=== PATIENT | female | born 1970 | race Caucasian/White ===

== ENCOUNTER → 2021-12-23 | Outpatient (REF) | payer OTHER | LOC: M LAB REF 18:45 | PROVIDERS: ATTEND Nurse Practitioner Family | DX: Z12.4 Encounter for screening for malignant neoplasm of cervix (principal); N76.0 Acute vaginitis ==

== ENCOUNTER → 2021-12-31 | Outpatient (CLI) | payer MEDICAID, OTHER | LOC: M RAD 11:20 | PROVIDERS: ATTEND Nurse Practitioner Family | DX: M54.50 Low back pain, unspecified (principal); M47.816 Spondylosis without myelopathy or radiculopathy, lumbar region; M47.814 Spondylosis without myelopathy or radiculopathy, thoracic region ==

== ENCOUNTER 2022-02-28 11:59 | Emergency (ER) | payer MEDICAID, OTHER ==
[~2022-02-28] VITALS: Ht 170.2 cm; Wt 88.6 kg
[2022-02-28] MEDS ORDERED: PREG75CA2 (12:21)
[2022-02-28] MEDS ORDERED: ROPI0.5T3 (12:21)
[2022-02-28] MEDS ORDERED: OMEP-173 (12:21)
[2022-02-28 13:52] LABS: BASO # 0.1 10^3/uL (0.0-0.2); BASO % 0.4 % (0.0-1.0); EOS # 0.1 10^3/uL (0.0-0.5); EOS % 0.6 % (0.0-3.0); HEMATOCRIT 44.4 % (36.0-47.0); LYMPH # 1.1 10^3/uL (1.5-5.0); LYMPH % 7.6 % (24.0-44.0); MEAN CORPUSCULAR HEMOGLOBIN 30.1 pg (27.0-33.0); MEAN CORPUSCULAR HGB CONC 33.8 g/dl (32.0-36.5); MONO # 1.2 10^3/uL (0.0-0.8); MONO % 7.7 % (2.0-8.0); NEUTROPHILS # 12.6 10^3/uL (1.5-8.5); NEUTROPHILS % 83.3 % (36.0-66.0); PLATELET COUNT, AUTOMATED 314 10^3/uL (150-450); RED BLOOD COUNT 4.99 10^6/uL (4.00-5.40); WHITE BLOOD COUNT 15.1 10^3/uL (4.0-10.0)
[2022-02-28 14:34] LABS: ALBUMIN 3.9 GM/DL (3.2-5.2); ALT/SGPT 26 U/L (12-78); BILIRUBIN,DIRECT < 0.1 MG/DL (0.0-0.2); BILIRUBIN,TOTAL 0.3 MG/DL (0.2-1.0); BLOOD UREA NITROGEN 13 MG/DL (7-18); CALCIUM LEVEL 9.5 MG/DL (8.5-10.1); CARBON DIOXIDE LEVEL 31 MEQ/L (21-32); CHLORIDE LEVEL 106 MEQ/L (98-107); CREATININE FOR GFR 0.84 MG/DL (0.55-1.30); GLOMERULAR FILTRATION RATE > 60.0 (>51); GLUCOSE, FASTING 108 MG/DL (70-100); LIPASE 108 U/L (73-393); POTASSIUM SERUM 4.8 MEQ/L (3.5-5.1); SODIUM LEVEL 140 MEQ/L (136-145); TOTAL PROTEIN 8.1 GM/DL (6.4-8.2)
[2022-02-28] MEDS ORDERED: ISOVUE-370 76% 100ML VIAL As Ordered ONE (16:00)
[2022-02-28] MEDS ORDERED: PANTOPRAZOLE 40MG TAB (PROTONIX) PO ONE (17:25)
[2022-02-28] MEDS ORDERED: OMEP-173 PO (17:49)
[2022-02-28 17:58] VITALS: BP 131/66
== END 2022-02-28 17:59 | disposition home or self-care (01) ==
LOC: M ED 11:59
DX: R10.9 Unspecified abdominal pain (principal); Z11.52 Encounter for screening for COVID-19; R11.2 Nausea with vomiting, unspecified; K44.9 Diaphragmatic hernia without obstruction or gangrene; K57.30 Diverticulosis of large intestine without perforation or abscess without bleeding; K21.9 Gastro-esophageal reflux disease without esophagitis; G25.81 Restless legs syndrome; M54.9 Dorsalgia, unspecified; F17.200 Nicotine dependence, unspecified, uncomplicated; Z91.030 Bee allergy status
CPT/HCPCS: 74177; 80048; 80076; 83690; 85025; 87426; 93005; 99284; Q9967

== ENCOUNTER → 2022-03-09 | Outpatient (CLI) | payer MEDICAID, OTHER ==
[~2022-03-09] MED LIST: OMEP-173; OMEP-173 PO; PREG75CA2; ROPI0.5T3
== END ==
LOC: M WHC 10:41
PROVIDERS: ATTEND Nurse Practitioner Family
DX: R92.2 Inconclusive mammogram (principal); N63.10 Unspecified lump in the right breast, unspecified quadrant

== ENCOUNTER → 2022-05-20 | Outpatient (CLI) | payer OTHER ==
[~2022-05-20] MED LIST changes: -PREG75CA2; +PREG75CA2 PO; -ROPI0.5T3; +ROPI0.5T3 PO
== END ==
LOC: M PLAIMG 11:56
PROVIDERS: ATTEND Orthopaedic Surgery
DX: M51.16 Intervertebral disc disorders with radiculopathy, lumbar region (principal)

== ENCOUNTER → 2022-05-31 | Outpatient (CLI) | payer OTHER | LOC: M LABSMTC 10:18 | PROVIDERS: ATTEND Anesthesiology | DX: Z01.818 Encounter for other preprocedural examination (principal) ==

== ENCOUNTER 2022-06-03 07:56 | Day surgery (SDC) | payer MEDICAID, OTHER ==
[~2022-06-03] VITALS: Ht 170.2 cm; Wt 84.4 kg
[~2022-06-03 07:56] MED LIST changes: +NS 1,000 ML IV ONE; +propofoL 500 MG/50 ML VIAL As Ordered ONE
[2022-06-03] MEDS ORDERED: LIDOCAINE 2% 100MG/5ML SDV (FOR ANES.) As Ordered ONE (08:44)
[2022-06-03] MEDS ORDERED: fentaNYL 100 MCG/2 ML INJECTION As Ordered ONE (09:01)
[2022-06-03 09:37] VITALS: BP 135/92
== END 2022-06-03 09:45 | disposition home or self-care (01) ==
LOC: M OPP 07:56
PROVIDERS: ATTEND Surgery
DX: R19.7 Diarrhea, unspecified (principal); K29.50 Unspecified chronic gastritis without bleeding; K22.70 Barrett's esophagus without dysplasia; K64.0 First degree hemorrhoids; K22.89 Other specified disease of esophagus; K21.9 Gastro-esophageal reflux disease without esophagitis; F32.A Depression, unspecified; G47.00 Insomnia, unspecified; Z91.030 Bee allergy status; Z79.899 Other long term (current) drug therapy

== ENCOUNTER → 2022-06-15 | Outpatient (REF) | payer OTHER ==
[~2022-06-15] MED LIST changes: -NS 1,000 ML IV ONE; -propofoL 500 MG/50 ML VIAL As Ordered ONE
[2022-06-15 17:53] LABS: ALKALINE PHOSPHATASE 101 U/L (46-116); ALT/SGPT 25 U/L (7.0-40); AST/SGOT 22 U/L (<34); BILIRUBIN,TOTAL 0.3 MG/DL (0.3-1.2); BLOOD UREA NITROGEN 13 MG/DL (9-23); CALCIUM LEVEL 9.3 MG/DL (8.5-10.1); CARBON DIOXIDE LEVEL 27 MMOL/L (20-31); CHLORIDE LEVEL 103 MMOL/L (98-107); CHOLESTEROL LEVEL 181 MG/DL (<200); CREATININE FOR GFR 0.67 MG/DL (0.55-1.30); GLOMERULAR FILTRATION RATE > 60.0 (>51); GLUCOSE, FASTING 159 MG/DL (60-100); HDL CHOLESTEROL 37.7 MG/DL (>40); LDL CHOLESTEROL 104.7 MG/DL (<100); NON-HDL-C 143 MG/DL; POTASSIUM SERUM 4.4 MMOL/L (3.5-5.1); SODIUM LEVEL 137 MMOL/L (136-145); TRIGLYCERIDES LEVEL 193 MG/DL (<150)
== END ==
LOC: M LAB REF 16:37
PROVIDERS: ATTEND Nurse Practitioner Family
DX: E78.5 Hyperlipidemia, unspecified (principal)

== ENCOUNTER 2022-07-25 22:18 | Emergency (ER) | payer OTHER ==
[~2022-07-25] VITALS: Ht 170.2 cm; Wt 90.0 kg
[2022-07-25 22:18] VITALS: BP 137/86
[2022-07-25 23:15] LABS: RSV AMPLIFICATION NEGATIVE (NEGATIVE)
== END 2022-07-26 00:06 | disposition left against medical advice (07) ==
LOC: M ED 22:18
DX: Z53.21 Procedure and treatment not carried out due to patient leaving prior to being seen by health care provider (principal)

== ENCOUNTER 2022-08-31 11:07 | Outpatient (RCR) | payer OTHER | END 2022-09-02 | LOC: M PT 11:07 | PROVIDERS: ATTEND Orthopaedic Surgery | DX: M51.16 Intervertebral disc disorders with radiculopathy, lumbar region (principal) ==

== ENCOUNTER 2022-09-28 10:45 | Outpatient (RCR) | payer OTHER | END 2022-10-02 | LOC: M PT 10:45 | PROVIDERS: ATTEND Orthopaedic Surgery | DX: M51.16 Intervertebral disc disorders with radiculopathy, lumbar region (principal) ==

== ENCOUNTER 2023-02-05 09:18 | Emergency (ER) | payer OTHER ==
[~2023-02-05] VITALS: Ht 170.2 cm; Wt 83.8 kg
[~2023-02-05 09:18] MED LIST changes: -PREG75CA2 PO; +PREG75CA3 PO; -ROPI0.5T3 PO; +ROPI0.5T33 PO
[2023-02-05] MEDS ORDERED: FEXO60TA99 (09:27)
[2023-02-05] MEDS ORDERED: NAPR-849 PO (09:27)
[2023-02-05] MEDS ORDERED: KETOROLAC 30 MG/ML 1ML VIAL IM ONE (12:20)
[2023-02-05 13:19] VITALS: BP 136/84; TEMP 98; O2SAT 100
== END 2023-02-05 13:20 | disposition home or self-care (01) ==
LOC: M ED 09:18
DX: M19.011 Primary osteoarthritis, right shoulder (principal); M79.601 Pain in right arm; M25.511 Pain in right shoulder; K21.9 Gastro-esophageal reflux disease without esophagitis; F32.A Depression, unspecified; Z91.030 Bee allergy status; Z79.83 Long term (current) use of bisphosphonates; Z79.899 Other long term (current) drug therapy
CPT/HCPCS: 73030; 73060; 96372; 99284; J1885

== ENCOUNTER → 2023-08-11 | Outpatient (CLI) | payer OTHER ==
[~2023-08-11] MED LIST changes: +FEXO60TA99; +NAPR-849 PO
== END ==
LOC: M SOG 08:01
PROVIDERS: ATTEND Physician Assistant
DX: M19.011 Primary osteoarthritis, right shoulder (principal)

== ENCOUNTER → 2023-08-15 | Outpatient (REF) | payer OTHER ==
[2023-08-15 19:07] LABS: BASO # 0.1 10^3/uL (0.0-0.2); BASO % 0.8 % (0.0-1.0); EOS # 0.3 10^3/uL (0.0-0.5); EOS % 2.7 % (0.0-3.0); HEMOGLOBIN 15.1 g/dl (12.0-15.5); LYMPH # 3.3 10^3/uL (1.5-5.0); LYMPH % 35.8 % (24.0-44.0); MEAN CORPUSCULAR HEMOGLOBIN 29.3 pg (27.0-33.0); MEAN CORPUSCULAR HGB CONC 33.6 g/dl (32.0-36.5); MEAN CORPUSCULAR VOLUME 87.4 fl (80.0-96.0); MONO # 0.8 10^3/uL (0.0-0.8); MONO % 8.2 % (2.0-8.0); NEUTROPHILS # 4.8 10^3/uL (1.5-8.5); NEUTROPHILS % 52.3 % (36.0-66.0); PLATELET COUNT, AUTOMATED 348 10^3/uL (150-450); RED BLOOD COUNT 5.15 10^6/uL (4.00-5.40); WHITE BLOOD COUNT 9.1 10^3/uL (4.0-10.0)
[2023-08-15 19:23] LABS: BLOOD UREA NITROGEN 14 MG/DL (9-23); CALCIUM LEVEL 8.4 MG/DL (8.5-10.1); CARBON DIOXIDE LEVEL 27 MMOL/L (20-31); CHLORIDE LEVEL 109 MMOL/L (98-107); CHOLESTEROL LEVEL 153 MG/DL (<200); CHOLESTEROL RISK RATIO 4.95 (<5); CREATININE FOR GFR 0.69 MG/DL (0.55-1.30); GLOMERULAR FILTRATION RATE > 60.0 (>51); GLUCOSE, FASTING 85 MG/DL (60-100); HDL CHOLESTEROL 30.9 MG/DL (>40); IRON (FE) 66 UG/DL (50-170); LDL CHOLESTEROL 90.5 MG/DL (<100); NON-HDL-C 122.1 MG/DL; PERCENT SATURATION 17.7 % (13.2-45.0); POTASSIUM SERUM 4.1 MMOL/L (3.5-5.1); SODIUM LEVEL 140 MMOL/L (136-145); TOTAL IRON BINDING CAPACITY 373 UG/DL (250-425); TRIGLYCERIDES LEVEL 158 MG/DL (<150)
[2023-08-15 19:25] LABS: THYROID STIMULATING HORMONE 1.604 uIU/ML (0.55-4.78)
[2023-08-15 19:39] LABS: HEMOGLOBIN A1c 6.2 % (4.0-6.0)
== END ==
LOC: M LAB REF 15:32
PROVIDERS: ATTEND Nurse Practitioner Family
DX: G25.81 Restless legs syndrome (principal); E78.5 Hyperlipidemia, unspecified; E66.3 Overweight; E55.9 Vitamin D deficiency, unspecified; R53.83 Other fatigue

== ENCOUNTER → 2023-09-15 | Outpatient (CLI) | payer OTHER | LOC: M RAD 09:03 | PROVIDERS: ATTEND Nurse Practitioner Family | DX: R14.0 Abdominal distension (gaseous) (principal); R93.429 Abnormal radiologic findings on diagnostic imaging of unspecified kidney; K76.0 Fatty (change of) liver, not elsewhere classified ==

== ENCOUNTER → 2024-06-12 | Outpatient (CLI) | payer OTHER | LOC: M RAD 10:16 | PROVIDERS: ATTEND Nurse Practitioner Family | DX: N28.89 Other specified disorders of kidney and ureter (principal) ==

== ENCOUNTER → 2024-07-29 | Outpatient (REF) | payer OTHER ==
[2024-07-29 18:10] LABS: BLOOD UREA NITROGEN 8 MG/DL (9-23); CALCIUM LEVEL 8.4 MG/DL (8.5-10.1); CARBON DIOXIDE LEVEL 28 MMOL/L (20-31); CHLORIDE LEVEL 109 MMOL/L (98-107); CHOLESTEROL LEVEL 167 MG/DL (<200); CHOLESTEROL RISK RATIO 5.12 (<5); CREATININE FOR GFR 0.77 MG/DL (0.55-1.30); GLOMERULAR FILTRATION RATE > 60.0 (>51); GLUCOSE, FASTING 100 MG/DL (60-100); HDL CHOLESTEROL 32.6 MG/DL (>40); LDL CHOLESTEROL 83.8 MG/DL (<100); NON-HDL-C 134.4 MG/DL; POTASSIUM SERUM 4.5 MMOL/L (3.5-5.1); SODIUM LEVEL 144 MMOL/L (136-145); TRIGLYCERIDES LEVEL 253 MG/DL (<150)
[2024-07-29 18:12] LABS: BASO # 0.1 10^3/uL (0.0-0.2); BASO % 0.6 % (0.0-1.0); EOS # 0.3 10^3/uL (0.0-0.5); EOS % 2.9 % (0.0-3.0); HEMATOCRIT 42.1 % (36.0-47.0); HEMOGLOBIN 13.8 g/dl (12.0-15.5); LYMPH # 3.1 10^3/uL (1.5-5.0); LYMPH % 36.2 % (24.0-44.0); MEAN CORPUSCULAR HEMOGLOBIN 29.5 pg (27.0-33.0); MEAN CORPUSCULAR HGB CONC 32.8 g/dl (32.0-36.5); MONO # 0.5 10^3/uL (0.0-0.8); MONO % 5.8 % (2.0-8.0); NEUTROPHILS # 4.7 10^3/uL (1.5-8.5); NEUTROPHILS % 54.3 % (36.0-66.0); PLATELET COUNT, AUTOMATED 318 10^3/uL (150-450); RED BLOOD COUNT 4.68 10^6/uL (4.00-5.40); WHITE BLOOD COUNT 8.7 10^3/uL (4.0-10.0)
[2024-07-29 18:14] LABS: THYROID STIMULATING HORMONE 1.269 uIU/ML (0.55-4.78)
== END ==
LOC: M LAB REF 16:37
PROVIDERS: ATTEND Nurse Practitioner Family
DX: E66.3 Overweight (principal); E78.5 Hyperlipidemia, unspecified; R53.83 Other fatigue

== ENCOUNTER 2024-12-08 17:08 | Emergency (ER) | payer OTHER ==
[~2024-12-08] VITALS: Ht 170.2 cm; Wt 79.9 kg
[2024-12-08 17:10] VITALS: TEMP 97.8
[2024-12-08] MEDS: KETOROLAC 30 MG/ML 1 ML VIAL IV ONE (18:28)
[2024-12-08] MEDS: AMPICILLIN SOD/SULBACTAM SOD 3 GM in DEXTROSE 5% (D5W) MINI-BAG PLU 100 ML IV ONE (18:29)
[2024-12-08 18:54] LABS: BASO # 0.1 10^3/uL (0.0-0.2); BASO % 0.5 % (0.0-1.0); EOS # 0.3 10^3/uL (0.0-0.5); EOS % 2.8 % (0.0-3.0); LYMPH # 3.6 10^3/uL (1.5-5.0); LYMPH % 37.6 % (24.0-44.0); MONO # 0.6 10^3/uL (0.0-0.8); MONO % 6.4 % (2.0-8.0); NEUTROPHILS # 5.0 10^3/uL (1.5-8.5); NEUTROPHILS % 52.5 % (36.0-66.0); PLATELET COUNT, AUTOMATED 301 10^3/uL (150-450)
[2024-12-08 19:04] LABS: ERYTHROCYTE SEDIMENTATION RATE 62 mm/hr (0-30)
[2024-12-08 19:16] VITALS: BP 122/78
[2024-12-08 19:18] LABS: C REACTIVE PROTEIN QUANTITATIV 1.29 MG/DL (<1.0); CALCIUM LEVEL 9.1 MG/DL (8.5-10.1); CARBON DIOXIDE LEVEL 28 MMOL/L (20-31); CHLORIDE LEVEL 107 MMOL/L (98-107); CREATININE FOR GFR 0.67 MG/DL (0.55-1.30); GLOMERULAR FILTRATION RATE > 90.0 (>51); POTASSIUM SERUM 4.8 MMOL/L (3.5-5.1); SODIUM LEVEL 142 MMOL/L (136-145)
[2024-12-08] MEDS ORDERED: ISOVUE-370 76% 100 ML VIAL As Ordered ONE (19:20)
[2024-12-08 19:23] VITALS: O2SAT 94
[2024-12-08] MEDS ORDERED: AMOX875T2 PO (19:56)
[2024-12-08] MEDS ORDERED: KETO-204 PO (19:56)
== END 2024-12-08 20:31 | disposition home or self-care (01) ==
LOC: M ED 17:08
DX: L03.211 Cellulitis of face (principal); F32.A Depression, unspecified; G25.81 Restless legs syndrome; Z91.030 Bee allergy status; Z79.1 Long term (current) use of non-steroidal anti-inflammatories (NSAID); Z79.2 Long term (current) use of antibiotics; Z79.899 Other long term (current) drug therapy
CPT/HCPCS: 70487; 80048; 85025; 85652; 86140; 96374; 96375; 99284; J0295; J1885; Q9967